=== PATIENT | female | born 1965 | race Caucasian/White ===

== ENCOUNTER 2017-03-11 09:56 | Day surgery (SDC) | payer OTHER ==
[2017-03-11] VITALS (14 sets, daily range): BP systolic 100–116; BP diastolic 53–68; PULSE 63–82; RESP 12–19; O2SAT 95–100
[~2017-03-11] VITALS: Ht 157.5 cm; Wt 64.2 kg
[2017-03-11] MEDS: Lactated Ringer's 1,000 ML IV SCH ×6 (05:00→23:44)
[2017-03-11] MEDS: CeFAZolin Inj 2 GM in IV Premix 1 EACH IV SCH ×3 (06:00→12:28)
--- NOTE | 2017-03-11 07:09 | PCM.HPANE ---
Patient Data Surgeon Admitting Provider: Attending Provider:Gokul Ramos MD Primary Care Physician:Makeda Lofton MD Other Provider:Cris Falkingham Anesthesia Reason for Visit Ovarian Cystic Mass,Menorrhagia,Endometriosis Ht/WT & BMI Height (Feet): 5 Height (Inches): 2.5 Weight (Kilograms): 64.23 Body Mass Index 25.00 Allergies Coded Allergies: fluticasone (Verified Allergy, Unknown, heart races-palpitations, 03/06/17) Uncoded Allergies: SALMETROL (Allergy, Unknown, heart races- palpitations, 03/06/17) Past Anesthesia History Anesthesia History: Denies:: Anesthesia Reactions (nausea always), Fam Anesthesia Reaction, Malignant Hyperthermia Diabetes History Hx Diabetes?: No MRSA MRSA: No Medications Hypertension Medication: No Home Meds Incl Beta Juan A: No Reported Medications Ferrous Sulfate (Iron)325 Mg Capsule.er325 Mg PO DAILY 03/06/17 Discontinued Reported Medications IBUPROFEN-Expunged Drug, Do Not Renew! 200 Mg [id number] Mg PO TIDP #20 TAB 11/09/12 CHOLECALCIFEROL-Expunged Drug, Do Not Renew! (VITAMIN D3-Expunged Drug, Do Not Renew!)2,000 Unit Capsule1,000 Unit PO DAILY 11/09/12 [tums] No Conflict Check 11/09/12 Tamsulosin-Expunged Drug, Do Not Renew! (Flomax-Expunged Drug, Do Not Renew!) 0.4 Mg Capsule0.4 Mg PO HS #30 CAP 11/09/12 Cetirizine-Expunged Drug, Do Not Renew! 10 Mg [id number] Mg PO DAILY 11/09/12 Amitriptyline-Expunged Drug, Do Not Renew! 25 Mg [id number] Mg PO HS #30 TAB 11/09/12 History History of ENT Problems?: Yes HEENT History: Positive for:: Hearing Problem (not diagnosed, no aides) Sinus Problem (hx of sinus surgery, chronic) TMJ (wears nightguard) Denies:: Cataracts Glaucoma Denture Type: None Teeth Condition: Within Normal Limits Hx of Heart Problems?: Yes Cardiovascular History: Positive for:: Irregular Heartbeat (past hx palpitations, not current ) Denies:: AICD Edema Heart Murmur Hypertension Pacemaker Peripheral Vascular Rheumatic Fever Hx of Respiratory Problem?: Yes Respiratory History: Positive for:: Asthma (as child) Use of Inhalers / NEBS (only when near horses) Denies:: COPD Emphysema Oxygen Administration Pneumonia Tuberculosis Use of C-PAP Machine Hx Neurologic Problems?: No Neurological History: Denies:: CVA Dementia Dizziness Headaches Multiple Sclerosis Parkinson's Disease Seizures TIA Hx of GI Problems?: No Gastrointestinal History: Denies:: Cirrhosis Diverticulitis Gall Bladder Disease Gastroesphageal Reflux Gastrointestinal Bleeding Heartburn Hepatitis Hiatal Hernia Liver Disease Rectal Bleeding Hx of Problems?: No Genitourinary History: Denies:: Kidney Stones Urinary Tract Infection Female Hx: Denies:: Currently Problems with Breasts? Skin History: Denies:: History Skin Disorders? Pressure Ulcers Hx Musculoskeletal Problems?: Yes Musculoskeletal History: Positive for:: Back Injury (hx of scoliosis) Fibromyalgia (hx of prior dx- which was reversed) Osteoarthritis (osteopenia hips) Denies:: Joint Replacement Myasthenia Gravis Systemic Lupus Hx of Psycho/Social Problems?: No Psycho Social History: Denies:: Anxiety Hx Depression Hx Surgeries?: Yes (sinus 01/01, cysto-urethral dil, ) Hx Any Other Health Problems?: Yes Other History: Denies:: Cancer Endocrine Disease Hospitalization Thyroid Disease History Blood Transfusions: Positive for:: Accept Blood Products? Denies:: Blood Transfusions Hx Diabetes: No Hx Alcohol Use: NoHx Substance Use: NoHave You Smoked inLast 12 mo: No Stop/Bang P-Blood Pressure: treated: No B- Body Mass Index > 35 kg/m2: No A- Age over 50: Yes N- Neck Large Circumference: No G- Gender Male: No Risk Assessment Category Category 1A: Patient has history of documented sleep apnea, and HAS NOT received any narcotic, sedative or anesthesia administration during this stay. Category 1B: Patient has history of documented sleep apnea, and HAS received any narcotic , sedative or anesthesia administration during this stay Category 2: Patient has SUSPECTED Obstructive Sleep Apnea, and HAS received any narcotic , sedative or anesthesia administration during this stay. Category 3: Patient has SUSPECTED Obstructive Sleep Apnea and HAS NOT received narcotic, sedative or anesthesia administration during this stay. Category 4: Outpatient in Procedural Areas with known sleep apnea or who screen positive for High Risk via the STOP/BANG questionnaire. Exam Exam General Appearance: Alert, Oriented X3, Cooperative, No Acute Distress HEENT/AIRWAY: MP 2 Lungs: Clear to Auscultation, Normal Air Movement Heart: Exam Unremarkable, Regular Rate/Rhythm, No Murmurs/Rubs/Gallops Plan Impression Patient chart reviewed, patient interviewed and anesthestic plan with risks, benefits, and alternatives discussed, and informed consent obtained. NPO per Anesth. Guidelines: Yes ASA Physical Status: ASA2 Mod Systemic Disease Anesthetic Support Modalities: Hemodynamic Monitoring Anesthetic Plan: GA Bene/Risks/Altern/Consents: Yes HP Complete Prior to Induction: Yes Daniele Velásquez MD Mar 11, 2017 07:09
[~2017-03-11 09:56] MED LIST: FERR325C PO; Phenazopyridine 97.5 mg Tablet PO SCH
[2017-03-11] MEDS ORDERED: EPHEDrine/NS 5 mg/mL 5 mL Syringe ONE (09:57)
[2017-03-11] MEDS ORDERED: Propofol 10,000 mCg/mL 20 mL Inj ONE (09:57)
[2017-03-11] MEDS ORDERED: Glycopyrrolate 0.2 MG/ML 1mL Inj ONE (09:57)
[2017-03-11] MEDS ORDERED: Dexamethasone 4 mg/mL Inj ONE (09:57)
[2017-03-11] MEDS ORDERED: fentaNYL-PF 50 mCg/mL 2 mL Inj ONE ×2 (09:57→15:56)
[2017-03-11] MEDS ORDERED: Ondansetron 2 mg/mL 2 mL Inj ONE (09:57)
[2017-03-11] MEDS ORDERED: Neostigmine 1 mg/mL 10 mL Inj ONE (09:57)
[2017-03-11] MEDS ORDERED: Lidocaine 1%/Epi 1:100,000 30 mL MDV INFILTRATE ONE (13:06)
[2017-03-11] MEDS ORDERED: MetoCLOpramide 5 mg/mL 2 mL Inj IVPUSH PRN ×2 (13:10→15:45)
[2017-03-11] MEDS ORDERED: EPHEDrine Sulfate 50 mg/mL Inj IVPUSH PRN (13:10)
[2017-03-11] MEDS ORDERED: Dexamethasone 4 mg/mL Inj IVPUSH PRN (13:10)
[2017-03-11] MEDS ORDERED: Lactated Ringer's 1,000 ML IV SCH (13:10)
[2017-03-11] MEDS ORDERED: Lactated Ringer's 500 ML IV PRN (13:10)
[2017-03-11] MEDS ORDERED: Phenylephrine 10,000 mCg/mL Inj IVPUSH PRN (13:10)
[2017-03-11] MEDS ORDERED: Ondansetron 2 mg/mL 2 mL Inj IVPUSH PRN ×2 (13:10→15:45)
[2017-03-11] MEDS ORDERED: Lactated Ringer's 1,000 ML IV ONE ×2 (13:22→16:23)
[2017-03-11] MEDS ORDERED: diphenhydrAMINE 25 mg Capsule PO PRN (15:45)
[2017-03-11] MEDS ORDERED: Alum-Mag Hydrox-Simeth 30 mL Suspension PO PRN (15:45)
--- NOTE | 2017-03-11 15:52 | PCM.ANEP1 ---
Post Anesthesia Phase 1 PACU Phase 1 Assessment Date of Service: Mar 11, 2017 Vital Signs Vital Signs Date Time Temp Pulse Resp B/P Pulse Ox O2 Delivery O2 Flow Rate FiO2 03/11/17 10:17 36.5 69 18 108/66 99 Room Air Anesthetic Administered: GA Level of Alertness: Drowsy, not talking GUTHRIE's with Equal Strength: Yes Pain: No Nausea or Vomiting: No Cardiovascular Function and Hy: Yes Airway Device: Endotrachial Tube Oxygen Delivery: Simple Mask Lungs: Clear to Auscultation, Normal Air Movement Dermatome Level: Full Sensation Complications: No Follow up Care: No Patient Instructions Provided: Yes Daniele Velásquez MD Mar 11, 2017 15:52
[2017-03-11] MEDS: fentaNYL-PF 50 mCg/mL 2 mL Inj IVPUSH PRN ×4 (16:00→16:32)
[2017-03-11] MEDS: HYDROmorphone 1 mg/mL Inj IVPUSH PRN ×4 (16:05→16:54)
[2017-03-11] MEDS: oxyCODONE-Acetamin 5-325 mg Tablet PO PRN ×2 (17:46→22:31)
--- NOTE | 2017-03-11 18:00 | NUR ---
Post Op Pt arrived to room 1004 from PACU at 1800. Pt A&Ox3. GUTHRIE. Able to transfer to bed SBA. 3 Lap sites C/D/I. Medial lower abdominal lap site has minimal drainage. Peripad in place with minimal drainage. Pt c/o 4/10 pain and states it is tolerable. Mild nausea that went away after the transfer, no medication given for nausea. 1L via NC. Care continues.
[2017-03-11] MEDS ORDERED: Acetaminophen IV 1,000 MG in IV Premix 1 EACH IV STA (18:41)
--- NOTE | 2017-03-11 22:44 | PCM.SURGOP ---
Surgical Operative Report Date of Service: Mar 11, 2017 Pre Operative Diagnosis 1. Menorrhagia 2. Adenomyosis 3. Right adnexal mass Post Operative Diagnosis 1. Menorrhagia 2. Adenomyosis 3. Right paratubal cyst 4. Left pelvic adhesion Procedure: Laparoscopic-Assisted Vaginal Hysterectomy (Open technique) and bilateral salpingoophorectomy, Laparoscopic Adhesiolysis, and cystoscopy. Surgeon and Alining Inspector: Surgeon: Gokul Ramos MD Assistants: Kanika Bueno MD Indication for Procedure Lena has a history of perimenopausal menorrhagia. Endometrial biopsy, pap and GC/Chl were negative. She failed conservative management including NSAIDs. Due to a hx of retinal vessel clot, hormonal treatments and Lysteda was contraindicated. A recent pelvic/abdominal ultrasound revealed fatty liver, uterine adenomyosis, 3.7 cm simple R ovarian cyst, 2 adjacent cysts in L ovary vs a septated cyst measuring 3.5 x 2.5 cm. No hydronephrosis noted. CA125 was mildly elevated at 43 and CEA was normal. She is a good candidate for surgical intervention including LAVHBSO with possible cautery of endometriosis/adhesiolysis. She may need HRT in the future and she prefers Estrace. The patient signed the consent form. She agreed with the risks, benefits, and alternatives to surgery. The risks included but not limited to injury to other organs including bladder, bowel, nerves or blood vessels. Need for blood transfusion, need for temporary colostomy or urinary stenting. Development of vaginal scarring, dyspareunia, defecatory dysfunction, recurring pain, hematoma formation, urinary tract infection, cellulitis, necrotizing fascitis, and medical risks including myocardial infarction, stroke or VTE. Risk of finding ovarian cancer with need for f/u with oncologist. The patient understood the risks and benefits and consented to surgery. Findings: R paratubal cyst bilobed uterus consistent with bicornuate uterus L mild/moderate pelvic sidewall adhesion Procedure Details SURGICAL TECHNIQUE: The patient was brought to the operating room and was placed under general anesthesia. She was prepped and draped in the normal fashion for laparoscopic and vaginal surgery with the legs in Yellofin stirrups. She was given a dose of IV ancef intraoperatively. She received 200 mg of oral pyridium in the preop holding area. A 16F mosley catheter was inserted and allowed to drain into a bag. 1.Laparoscopic-Assisted Vaginal Hysterectomy (Open technique) and bilateral salpingoophorectomy, Laparoscopic Adhesiolysis, and cystoscopy. An Tobias uterine manipulator was inserted into the cervix and secured via a single-tooth tenaculum attached to the anterior lip of the cervix. Lidocaine 1% with 1:100,000 of epinephrine was along the periumbilical, suprapubic and right/left lower quadrant areas. Using the open laparoscopy technique, a vertical infraumbilical incision was made along the skin. Using S- retractors, blunt dissection was used to dissect through the subcutaneous fat to reach the fascia. The fascia was tented up with 2 Kochers and incised with a scalpel. 0 Vicryl sutures (x2) were passed through the angles of the 10 mm fascial incision. The rectus muscle was gently sweeped laterally and the peritoneum was tented with 2 hemostats. A scalpel was used to incise the peritoneum to enter the abdominal cavity. A gloved finger was inserted into the incision. It was noted that there were no adhesions under the socorro- umbilical area. We then inserted the Ngo trocar into the incision. The abdomen was insufflated with approximately 3.5 liters of gas. She was placed in Trendelenberg position. Next a 5 mm port was inserted into a suprapubic incision under direct vision via a 5 mm trocar. A second and third 5-mm ports were inserted under direct vision in the LLQ and RLQ of the abdomen, avoiding the abdominal wall vessels via transillumination. Laparoscopic assessment along the infraumbilical incision revealed no injury to the omentum, bowel or other structures. A mild to moderate adhesion was noted in the left pelvic pelvic sidewall near the left adnexa. The adhesion was taken down using the Thunderbeat system, taking care to stay away from the bowel. In the pelvis, the uterus, tubes and ovaries appeared normal, other than a simple-appearing 4 cm paratubal cyst on the R ovary. Also the uterus appeared to be bilobed (ie. Bicornuate). There were no significant adhesions along the anterior bladder peritoneum and cul-de-sac. In the upper abdomen, there were no socorro-hepatic adhesions. The uterus was anteverted with the manipulator. Using the Thunderbeat system, the R round ligament was clamped, coagulated and then incised. Then R infundibulopelvic ligament was clamped, coagulated and then incised, taking care to avoid the ureter. The broad ligament and uterine vessels on this side were coagulated and divided using the Thunderbeat system. The same procedure was performed on the left side as well. Then the uterovesical peritoneum was tented up with forceps, allowing us to incise the peritoneal flap along this area. The abdomen and pelvis were then irrigated with sterile fluid. Hemostasis was noted to be adequate. We kept the laparoscopic ports in place to allow us to look into the pelvis after the vaginal part of the surgery was completed. We then proceeded with the vaginal portion of the hysterectomy. 1% lidocaine with [id number] epinephrine was infiltrated pericervically. A pericervical incision was made with the cut setting of the cautery. Anteriorly, the bladder was sharply dissected off the cervix. Posteriorly, the cul de sac was entered with sharp dissection. The bowels were packed with a mini-laparotomy sponge. The uterosacral ligaments were bilaterally clamped, divided and then tied in a transfixion fashion with 0-vicryl suture. Anteriorly, the uterovesical peritoneum was entered with sharp dissection and the bladder was retracted upward with a right-angle retractor. The remainder of the attachments were then coagulated, and ligated using the Ligasure Impact System. Due to the bulky size of the uterus, cervix was butterflied vertically with a scalpel and the uterine body was partially morcellated (including parts of the endometrium and myometrium) until we were able to deliver the uterine specimen. The uterus , tubes, ovaries, R paratubal cyst and cervix was then delivered and submitted to pathology. The uterosacral ligaments were tied together, creating a bridge of tissue to support the vaginal apex. The apex was attached to this complex and the vagina was closed with 2-0 vicryl suture in a running-locked fashion. Hemostasis was good. Cystoscopy was performed. In addition, the ureteric orifices were noted bilaterally to be functional by the brisk spillage of pyridium-stained urine. The bladder appeared normal. The mosley catheter was removed. We then had a second-look laparoscopically. The abdomen was insufflated. A small area of bleeding near the bladder flap was coagulated. The pelvis was irrigated and suctioned. Hemostasis was adequate. While the gas was allowed to slowly escape from the ports, direct visualization of the pelvis revealed no ongoing bleeding. All instruments were also removed under direct vision as the abdomen was de-insufflating. The fascia along the infraumbilical incision was closed using 0 Vicryl suture in a running fashion. Direct palpation of the approximated fascia revealed no defect. After irrigating the skin incision, the subcutaneous layer was approximated using 2-0 vicryl and the skin was reapproximated using 4-0 Monocryl suture in a subcuticular fashion. The lower skin incisions, suprapubically and along the left and right lower quadrant, were reapproximated using 4-0 Monocryl subcuticular suture, Mastisol solution, Steri-Strips, and Band-Aids. There were no complications. The EBL was 50 ml. All sponges and instruments were accounted for. She was taken to the recovery room in stable condition. Complications There were no periprocedural complications identified. Surgical Specimen Removed: Yes Specimen sent to Pathology: Yes Surgical Specimen description: uterus, tubes, ovaries, cervix, right paratubal cyst Anesthetic Plan: GA Grafts, Implants: None Output, Estimated Blood Loss: 50 (ml EBL) Blood Administration during anand: No Drains: None Catheters: None Post Operative Plan overnight stay in bed for observation copies to: Kanika Bueno MD; Gokul Ramos MD; Makeda Lofton MD, William Andre Z MD Mar 11, 2017 22:44
[2017-03-12 00:21] VITALS: BP 115/66; PULSE 70; RESP 17; O2SAT 97
[2017-03-12] MEDS: oxyCODONE-Acetamin 5-325 mg Tablet PO PRN ×3 (03:15→11:18)
--- NOTE | 2017-03-12 04:32 | NUR ---
Urinary retention last evening. Dr. Ramos notified and order received for mosley placement with home teaching of voiding trial. Patient then able to void 700ml by midnight so no catheter placed. Ate bites of dinner with transient nausea at HS now resolved. Percocet effective for pain. ambulated in room overnight, gait steady.
[2017-03-12 05:39] LABS: BASOPHILS % (AUTO) 0.1 % (0-3); EOSINOPHILS % (AUTO) 0 % (0-5); MONOCYTES % (AUTO) 7.3 % (4-12); Mean Corpuscular Hemoglobin 32.8 pg (27.0-35.0); Mean Corpuscular Volume 97.8 fL (81-100); NEUTROPHILS % (AUTO) 79.2 % (40-74); Platelet Count 276 bil/L (150-400)
[2017-03-12 05:47] VITALS: BP 97/55; PULSE 74; RESP 16; O2SAT 97
[2017-03-12] MEDS: Lactated Ringer's 1,000 ML IV SCH (07:41)
[2017-03-12 07:54] VITALS: BP 89/67; PULSE 67; RESP 18; O2SAT 98
[2017-03-12] MEDS ORDERED: Senna-Docusate 8.6-50 mg Tablet PO SCH (08:30)
[2017-03-12] MEDS ORDERED: Heparin 5,000 Unit/mL Inj SUBQ SCH (08:30)
--- NOTE | 2017-03-12 09:14 | NUR ---
Post Void Residual Scan/Activity/Shivering Pt voided 300 with PVR of 227. Pt denies having the feeling of having to urinate and feels "full" from the sensation of having to pass gas. Pt has been up and ambulating the hallway with , steady gait. Pt does have some shivering feeling again in her legs. Pt does not want to have a Salinas placed at this time. Will continue to monitor.
--- NOTE | 2017-03-12 09:40 | PCM.PNSURG ---
Subjective Date of Service: Mar 12, 2017 Date of Service: Mar 12, 2017 Visit Information: Reason for Visit Ovarian Cystic Mass,Menorrhagia,Endometriosis Surgery/Surgery Date Post-Op Day # 1 Subjective: AVSS BP 90's systolic (in office on 04/18/16, it was 100/60) Had one episode of urinary hesitancy last pm but did not require a catheter as she was able to void successfully tolerating diet ambulating pain controlled with po analgesia OR explained Postop General: No Complaints Gastrointestinal: Good Appetite Pain Management: PO Postop Activity: Ambulating Independently Objective Vital Sign- Last 8 Hours Date Time Temp Pulse Resp B/P Pulse Ox O2 Delivery O2 Flow Rate FiO2 03/12/17 07:54 36.7 67 18 89/67 98 Room Air 03/12/17 05:47 37.0 74 16 97/55 97 Room Air 03/12/17 04:30 Supplement Oxygen Intake and Output- Last 8 Hour 03/12/17 Cumulative From/Thru 07:00 03/06/17 12:46 - 03/12/17 05:45 Intake Total 800 ml 3090 ml Output Total 1350 ml 1550 ml Balance -550 ml 1540 ml Intake Oral 800 ml 1240 ml IV Total 1850 ml Output Urine Total 1350 ml 1450 ml Estimated Blood Loss 100 ml # Bowel Movements 0 0 General: Alert, Oriented X3 Lungs: Clear to Auscultation Catheters: None Result Diagram: 03/12/17 0445 Assessment & Plan Impression stable for discharge later today Problems: Plan d/c home later today f/u with Dr. Ramos in 2 wk She may take Estrace PO for HRT if she becomes symptomatic for menopausal symptoms copies to: Gokul Ramos MD, William Andre Z MD Mar 12, 2017 09:40
--- NOTE | 2017-03-12 09:42 | PCM.DIGYN ---
Surgical Discharge Instruction Dates of Hospitalization Date of Hospital Admission outpatient in bed with overnight stay 03/12/17 to 03/13/17 Providers Admitting Physician: Primary Care Physician: Makeda Lofton MD Attending Physician: Gokul Ramos MD Diagnosis at Time of Discharge Diagnosis at time of discharge 1. Menorrhagia 2. Adenomyosis 3. Right paratubal cyst 4. Left pelvic adhesion Post-operative diagnosis 1. Menorrhagia 2. Adenomyosis 3. Right paratubal cyst 4. Left pelvic adhesion Problems: Diet Discharge Diet: No restrictions Activity Discharge Activity-General: Restrict lifting to no greater than (10 lbs for 4 - 6 wk) Dressing and Incisional Care Dressing Care: Allow Steri Stripes to fall off Hygiene: May shower Follow Up Plan Follow-up appointment: Weeks (2) Call your provider for: Fever, Chills, Shortness of breath, Vomitting, Drainage at incision, Heavy vaginal bleeding, Wound redness, Increasing pain Gokul Ramos MD Mar 12, 2017 09:42
--- NOTE | 2017-03-12 11:26 | NUR ---
PVR Pt voided 800 at 1106 with a PVR of 100. Pt denies any discomfort.
--- NOTE | 2017-03-12 11:27 | NUR ---
Discharge Pt d/c'd from room 1004 at 1130. All discharge teaching and instructions were done with at bedside. All questions and concerns were answered. Self catheterization teaching done with pt. Pt understood all teachings as she had done this process before. All questions were answered and information packets were given. IV d/c'd intact. Pain medication given for the car ride home. Dressings C/D/I. All belongings with the pt. No items in the safe or in the pharmacy.
--- NOTE | 2017-03-13 18:21 | PATH ---
SURGICAL PATHOLOGY Attending Physician:Gokul Ramos, CASE STATUS: Signed Out PATIENT NAME: DARLING PINZON PID: [id number] : 1965 DATE COLLECTED:03/11/2017 23:48 SPECIMEN: Uterus +/- tubes/ovaries, except neoplastic, prolapse CLINICAL HISTORY: OVARIAN CYSTIC MASS, MENORRHAGIA, ENDOMETRIOSIS, PARATUBAL CYSTIC MASS 1). UTERUS, BILATERAL TUBES, BILATERAL OVARIES WITH RIGHT PARATUBAL CYST FINAL DIAGNOSIS: Uterus, Bilateral Fallopian Tubes and Ovaries, Laparoscopic-Assisted Vaginal Hysterectomy and Bilateral Salpingo-oophorectomy (Weight 148 grams): Cervix with no significant histomorphologic abnormality. Endocervix with benign microglandular hyperplasia and no histomorphologic abnormality. Disordered proliferative endometrium with scattered foci of endometrial hyperplasia without atypia. Myometrium with involvement by adenomyosis. Uterine serosa with no significant histomorphologic abnormality. Right fallopian tube with a benign paratubal cyst (4 cm in greatest dimension. Right ovary with a benign corpus luteal cyst (3.0 cm in greatest dimension). Right adnexal tissue involved by endometriosis. Left fallopian tube with no significant histomorphologic abnormality. Left ovary with benign inclusion cysts (1-7 mm in greatest dimension). ICD10: N83.2 GROSS DESCRIPTION: The specimen is received in formalin, labeled with the patient's name, sublabeled as uterus, jocelynn tubes and ovaries, right peritubal cyst and consists of a uterus (148 g, 4.3 cm in AP, 10.5 cm SI, 6.9 cm ML) with attached ovaries (right-3.0 x 2.3 x 1.7 cm; left-2.4 x 1.7 x 0.8 cm) and fimbriated fallopian tubes (right: length-8.5 cm, diameter-0.8 cm; left: length-9.3 cm, diameter-0.5 cm). The specimen is longitudinally sliced through the cervix to the center of the endometrial cavity. The cervix has a vaginal cuff (up to 2.1 cm in depth) and a patent endocervical canal. Endometrium (average thickness-0.2 cm) is pina and flat. The myometrium (thickness-3.0 cm) is pina with a whorled semi-trabeculated pattern. The serosa is grant-pina smooth and shiny. The right ovary is replaced with a pina-yellow cyst containing clear yellow fluid. The lining is red-brown smooth and flat with no excrescences identified. The wall is 0.1 cm thick. No normal ovarian parenchyma is identified. The left ovary has pina-yellow and grant purple bosselated serosa. The parenchyma is red-brown and solid cystic. The cavities (0.1 cm-0.7 cm) contain clear colorless fluid. The linings are smooth shiny and flat with no excrescences identified. The fallopian tubes have dark maroon smooth shiny serosal. The right fallopian tube has a paratubal cyst (4.0 x 3.5 x 3.0 cm) containing clear colorless fluid. The lumens are pina and unremarkable. Section code: (A, B) anterior cervix; (C, D) posterior cervix; (E-H) anterior endomyometrium; (I-K) posterior endomyometrium; (L) right ovarian cyst, serially sectioned, inside sales account representative; (M) left ovary, serially sectioned, inside sales account representative; (N) right fallopian tube, serially sectioned, inside sales account representative; (O) right fimbria, bivalved, entirely submitted; (P) left fallopian tube, serially sectioned, inside sales account representative; (Q-R) left fimbria, bivalved, one half in each cassette, entirely submitted. 03/12/17 ICD-9 CODES: CPT CODES: 77461 Electronically Signed Out Naila King MD [facility] Pathology [facility] [address], [place] [address] Technical component performed at [facility], [address] [place] [address] Ave, [address], [place], [address]
== END 2017-03-12 11:30 | disposition home or self-care (01) ==
LOC: SAS 09:56 → OSC 14:48 → SAS 03-12 11:30
PROVIDERS: ATTEND Obstetrics & Gynecology
PROC: 0UTC7ZZ Resection of Cervix, Via Natural or Artificial Opening (ICD-10-PCS; 2017-03-11)
PROC: 0UT2FZZ Resection of Bilateral Ovaries, Via Natural or Artificial Opening With Percutaneous Endoscopic Assistance (ICD-10-PCS; 2017-03-11)
PROC: 0UT7FZZ Resection of Bilateral Fallopian Tubes, Via Natural or Artificial Opening With Percutaneous Endoscopic Assistance (ICD-10-PCS; 2017-03-11)
PROC: 0UT9FZZ Resection of Uterus, Via Natural or Artificial Opening With Percutaneous Endoscopic Assistance (ICD-10-PCS; principal; 2017-03-11 12:30)
DX: N92.1 Excessive and frequent menstruation with irregular cycle (principal); N80.0 Endometriosis of uterus; N83.201 Unspecified ovarian cyst, right side; R10.2 Pelvic and perineal pain; N83.11 Corpus luteum cyst of right ovary; N83.292 Other ovarian cyst, left side; R33.9 Retention of urine, unspecified; N95.9 Unspecified menopausal and perimenopausal disorder; N83.8 Other noninflammatory disorders of ovary, fallopian tube and broad ligament; N39.41 Urge incontinence; M79.7 Fibromyalgia; Z92.23 Personal history of estrogen therapy
CPT/HCPCS: 36415; 58552; 85025; 86850; 88305; J0690; J1100; J1170; J1200; J1644; J1885; J2405; J2710; J2765; J3010; J7120